=== PATIENT | female | born 1985 | race African-American/Black ===

== ENCOUNTER 2017-03-17 00:02 | Emergency (ER) | payer OTHER ==
[~2017-03-17] VITALS: Ht 160 cm; Wt 75.2 kg
[~2017-03-17 00:02] MED LIST: NAPROSYN500 MG PO; ULTRAM50 M1 PO
[2017-03-17 01:52] VITALS: BP 115/70
== END 2017-03-17 01:52 | disposition home or self-care (01) | DRG 781 ==
LOC: ED 00:02
DX: O26.891 Other specified pregnancy related conditions, first trimester (principal); R51 Headache; Z3A.11 11 weeks gestation of pregnancy

== ENCOUNTER 2017-06-01 15:23 | Emergency (ER) | payer OTHER ==
[~2017-06-01] VITALS: Ht 160 cm; Wt 72.0 kg
[2017-06-01 16:23] LABS: ANION GAP 15 (6-22 (CALC)); BUN 4 mg/dL (7-17); BUN/CREATININE RATIO 6 (12-20 (CALC)); CARBON DIOXIDE 21 mmol/l (22-30); CHLORIDE 107 mmol/l (95-108); CREATININE 0.6 mg/dL (0.5-1.0); GFR > 60 ML/MIN (>=60 (CALC)); GFR FOR AFR.AMER. > 60 ML/MIN (>=60 (CALC)); POTASSIUM 3.9 mmol/l (3.5-5.1); SODIUM 139 mmol/l (137-146)
[2017-06-01 16:58] LABS: URINE BILIRUBIN - DIPSTICK NEGATIVE (NEGATIVE); URINE BLOOD DIPSTICK NEGATIVE (NEGATIVE); URINE COLOR YELLOW; URINE GLUCOSE - DIPSTICK NEGATIVE (NEGATIVE); URINE KETONE NEGATIVE (NEGATIVE); URINE LEUK ESTERASE TRACE (NEGATIVE); URINE NITRITE - DIPSTICK NEGATIVE (Negative); URINE PROTEIN - DIPSTICK NEGATIVE (NEG-TRACE); URINE SPECIFIC GRAVITY 1.015; URINE UROBILINOGEN - DIPSTICK 0.2 E.U./dL (0.2)
[2017-06-01 17:01] LABS: URINE CLARITY HAZY
[2017-06-01 17:42] VITALS: BP 94/51
== END 2017-06-01 17:42 | disposition home or self-care (01) | DRG 781 ==
LOC: ED 15:23
PROVIDERS: Family Medicine
DX: O26.892 Other specified pregnancy related conditions, second trimester (principal); K52.9 Noninfective gastroenteritis and colitis, unspecified; R11.0 Nausea; Z3A.22 22 weeks gestation of pregnancy

== ENCOUNTER 2017-10-27 18:39 | Emergency (ER) | payer OTHER ==
[~2017-10-27] VITALS: Ht 160 cm; Wt 69.6 kg
[2017-10-27] MEDS ORDERED: KEFLEX500 M1 PO (20:05)
[2017-10-27 20:29] VITALS: BP 116/71
== END 2017-10-27 20:29 | disposition home or self-care (01) ==
LOC: ED 18:39
DX: J32.9 Chronic sinusitis, unspecified (principal); R05 Cough; R09.81 Nasal congestion

== ENCOUNTER 2019-09-14 10:55 | Emergency (ER) | payer MEDICAID ==
[~2019-09-14] VITALS: Ht 160 cm; Wt 85.0 kg
[~2019-09-14 10:55] MED LIST changes: +KEFLEX500 M1 PO
[2019-09-14] MEDS ORDERED: CYCLOBENZAPR5 MG PO (12:29)
[2019-09-14] MEDS ORDERED: VOLTAREN1%GEL TOP (12:32)
[2019-09-14 13:07] VITALS: BP 126/73
== END 2019-09-14 13:20 | disposition home or self-care (01) | DRG 552 ==
LOC: ED 10:55
DX: M54.5 Low back pain (principal)

== ENCOUNTER 2024-03-01 07:19 | Emergency (ER) | payer SELFPAY ==
[~2024-03-01] VITALS: Ht 160 cm; Wt 86.2 kg
[~2024-03-01 07:19] MED LIST changes: +CYCLOBENZAPR5 MG PO; +VOLTAREN1%GEL TOP
[2024-03-01 07:52] VITALS: BP 108/92
[2024-03-01 08:00] VITALS: BP 120/73
[2024-03-01 08:15] VITALS: BP 115/78
[2024-03-01] MEDS ORDERED: ZPAK PO (08:32)
[2024-03-01 08:45] VITALS: BP 111/65
[2024-03-01 09:10] VITALS: BP 111/65
== END 2024-03-01 09:10 | disposition home or self-care (01) | DRG 153 ==
LOC: ED 07:19
DX: J06.9 Acute upper respiratory infection, unspecified (principal); Z20.822 Contact with and (suspected) exposure to COVID-19